=== PATIENT | male | born 1965 ===

== ENCOUNTER 2019-12-05 11:19 | Emergency (ER) | payer MEDICAID ==
[~2019-12-05] VITALS: Ht 172.7 cm; Wt 104.5 kg
[2019-12-05 11:36] VITALS: TEMP 98.1
[2019-12-05] MEDS ORDERED: LITHIUM 30300 MG/CAP PO (11:56)
[2019-12-05] MEDS ORDERED: NORVASC 10MG10 MG PO (11:57)
[2019-12-05] MEDS ORDERED: ASPIRIN 81M81 MG/TA2 PO (11:57)
[2019-12-05] MEDS ORDERED: MOBIC 7.5MG7.5 MG PO (11:57)
[2019-12-05] MEDS ORDERED: LIPITOR 10MG10 MG PO (11:57)
[2019-12-05] MEDS ORDERED: INDERAL 10MG10 MG PO (11:58)
[2019-12-05] MEDS ORDERED: INVEGA9 MG PO (11:58)
[2019-12-05] MEDS ORDERED: COLACE 100100 MG/CAP PO (11:59)
[2019-12-05] MEDS ORDERED: COZAAR 50MG50 MG/TAB PO (11:59)
[2019-12-05] MEDS ORDERED: THORAZINE 225 MG/TAB PO (12:00)
[2019-12-05] MEDS ORDERED: GLUCOTROL 5M5 MG/TAB PO (12:01)
[2019-12-05] MEDS ORDERED: PROSCAR 5MG5 MG PO (12:01)
[2019-12-05 12:05] LABS: COLLECTION METHOD CLEAN CATCH
[2019-12-05 12:17] LABS: BASO % 0.5 % (0.0-2.0); EOS % 0.7 % (0-4.0); GRAN # 2.4 (1.4-6.5); GRAN % 60.1 % (42.2-75.2); HEMATOCRIT 40.7 % (42.0-52.0); HEMOGLOBIN 13.9 g/dl (13.5-18.0); LYMPH # 1.2 (1.2-3.4); LYMPH % 30.5 % (20.0-51.0); MEAN CELL VOLUME 88 fl (80.0-100.0); MEAN CORPUSCULAR HEMOGLOBIN 30 pg (27.0-31.0); MEAN CORPUSCULAR HGB CONC 34 g/dl (33.0-37.0); MEAN PLATELET VOLUME 8.9 fl (7.4-10.4); MONO # 0.3 (0.1-0.6); MONO % 7.7 % (1.7-9.3); PLATELET COUNT 262 K/mm3 (130-400); RED BLOOD COUNT 4.65 M/mm3 (4.20-5.60); REDCELL DISTRIBUTION WIDTH-CV 12.3 % (11.5-14.5)
[2019-12-05 12:21] LABS: PH 6 (5-8); SQUAMOUS EPITHELIAL None Seen /hpf; URINE APPEARANCE Clear; URINE BACTERIA None Seen /hpf; URINE BILIRUBIN Negative (NEGATIVE); URINE BLOOD Negative (NEGATIVE); URINE COLOR Straw; URINE GLUCOSE 2+ (NEGATIVE); URINE KETONE Negative (NEGATIVE); URINE LEUKOCYTE ESTERASE Negative (NEGATIVE); URINE NITRATE Negative (NEGATIVE); URINE PROTEIN(semi-quant) Negative (NEGATIVE); URINE RBC None Seen /hpf; URINE UROBILINOGEN Negative (NEGATIVE)
[2019-12-05 12:22] LABS: ALANINE AMINOTRANSFERASE 130 U/L (21-72); ALBUMIN 4.5 gm/dL (3.5-5.0); ALKALINE PHOSPHATASE 91 U/L (50-136); ANION GAP 12 mmol/L (7-16); AST,SGOT 78 U/L (15-37); BILIRUBIN,TOTAL 0.5 mg/dL (0.0-1.0); BLOOD UREA NITROGEN 9 mg/dL (9-20); CALCIUM 9.7 mg/dL (8.4-10.2); CARBON DIOXIDE 25 mmol/L (22-30); CHLORIDE 98 mmol/L (98-107); CREATININE, serum 0.95 (0.66-1.25); GLUCOSE 213 mg/dL (74-106); POTASSIUM 3.5 mmol/L (3.4-5.0); SODIUM 135 mmol/L (137-145); TOTAL PROTEIN 7.3 gm/dL (6.4-8.2)
[2019-12-05 12:31] LABS: ACETAMINOPHEN < 10 ug/mL (10-30); ALCOHOL(ethanol),MEDICAL < 10 mg/dL; SALICYLATE < 1.0 mg/dL
[2019-12-05 12:41] LABS: TRICYCLIC ANTIDEPRESS URINE NEGATIVE
[2019-12-05 17:40] VITALS: BP 152/77; PULSE 120
== END 2019-12-05 17:45 ==
LOC: COL.ER 11:19
PROVIDERS: Nurse Practitioner
DX: F32.9 Major depressive disorder, single episode, unspecified (principal); F20.9 Schizophrenia, unspecified; R45.851 Suicidal ideations; F43.10 Post-traumatic stress disorder, unspecified; F41.9 Anxiety disorder, unspecified; Z79.82 Long term (current) use of aspirin; Z79.84 Long term (current) use of oral hypoglycemic drugs

== ENCOUNTER 2020-04-24 14:13 | Emergency (ER) | payer MEDICAID ==
[~2020-04-24] VITALS: Ht 175.3 cm; Wt 105.5 kg
[~2020-04-24 14:13] MED LIST: ASPIRIN 81M81 MG/TA2 PO; COLACE 100100 MG/CAP PO; COZAAR 50MG50 MG/TAB PO; GLUCOTROL 5M5 MG/TAB PO; INDERAL 10MG10 MG PO; INVEGA9 MG PO; LIPITOR 10MG10 MG PO; LITHIUM 30300 MG/CAP PO; MOBIC 7.5MG7.5 MG PO; NORVASC 10MG10 MG PO; PROSCAR 5MG5 MG PO; THORAZINE 225 MG/TAB PO
[2020-04-24 14:15] VITALS: TEMP 99.8
[2020-04-24] MEDS ORDERED: SINEQUAN 1100 MG/CAP PO (14:36)
[2020-04-24] MEDS ORDERED: NEXIUM 40MG40 MG PO (14:36)
[2020-04-24] MEDS ORDERED: FLOMAX 0.40.4 MG/CAP PO (14:38)
[2020-04-24] MEDS ORDERED: SELENIUM200 MC5 (14:39)
[2020-04-24] MEDS ORDERED: NATURAL E400 IU (14:40)
[2020-04-24] MEDS ORDERED: VITAMIN B COMPL1 SGL (14:40)
[2020-04-24] MEDS ORDERED: OMEGA-31 SGL (14:40)
[2020-04-24] MEDS ORDERED: ENULOSE10 GM/151 PO (14:41)
[2020-04-24] MEDS ORDERED: VITAMIN K0.1 MG (14:42)
[2020-04-24] MEDS ORDERED: D3-5050000 IU (14:43)
[2020-04-24] MEDS ORDERED: PHARMASSURE ZIN50 MG (14:43)
[2020-04-24] MEDS ORDERED: NATURAL VITAM1000 MG (14:44)
[2020-04-24 15:20] LABS: ALANINE AMINOTRANSFERASE 61 U/L (4-49); ALBUMIN 4.3 gm/dL (3.5-5.0); ALKALINE PHOSPHATASE 80 U/L (50-136); ANION GAP 11 mmol/L (7-16); AST,SGOT 62 U/L (15-37); BILIRUBIN,TOTAL 0.6 mg/dL (0.0-1.0); BLOOD UREA NITROGEN 8 mg/dL (9-20); C-REACTIVE PROTEIN 0.8 mg/dL (0.0-0.9); CALCIUM 9.3 mg/dL (8.4-10.2); CARBON DIOXIDE 23 mmol/L (22-30); CHLORIDE 95 mmol/L (98-107); CREATININE, serum 0.94 (0.66-1.25); GLUCOSE 151 mg/dL (74-106); SODIUM 129 mmol/L (137-145); TOTAL PROTEIN 7.3 gm/dL (6.4-8.2)
[2020-04-24 15:29] LABS: TROPONIN-I < 0.012 ng/mL (0.000-0.035)
[2020-04-24 15:30] LABS: COLLECTION METHOD CLEAN CATCH
[2020-04-24 15:35] LABS: BASO % 0.4 % (0.0-2.0); EOS # 0.1 (0.0-0.7); GRAN # 1.8 (1.4-6.5); GRAN % 39.4 % (42.2-75.2); HEMATOCRIT 38.4 % (42.0-52.0); HEMOGLOBIN 13.1 g/dl (13.5-18.0); LYMPH # 2.2 (1.2-3.4); LYMPH % 48.2 % (20.0-51.0); MEAN CELL VOLUME 84 fl (80.0-100.0); MEAN CORPUSCULAR HEMOGLOBIN 29 pg (27.0-31.0); MEAN CORPUSCULAR HGB CONC 34 g/dl (33.0-37.0); MEAN PLATELET VOLUME 8.7 fl (7.4-10.4); MONO # 0.4 (0.1-0.6); MONO % 9.3 % (1.7-9.3); PLATELET COUNT 267 K/mm3 (130-400); REDCELL DISTRIBUTION WIDTH-CV 12.3 % (11.5-14.5)
[2020-04-24 15:36] LABS: PH 6 (5-8); SQUAMOUS EPITHELIAL None Seen /hpf; URINE APPEARANCE Clear; URINE BACTERIA None Seen /hpf; URINE BILIRUBIN Negative (NEGATIVE); URINE BLOOD Negative (NEGATIVE); URINE COLOR Colorless; URINE GLUCOSE Negative (NEGATIVE); URINE KETONE Negative (NEGATIVE); URINE LEUKOCYTE ESTERASE Negative (NEGATIVE); URINE NITRATE Negative (NEGATIVE); URINE PROTEIN(semi-quant) Negative (NEGATIVE); URINE RBC 0-2 /hpf; URINE UROBILINOGEN Negative (NEGATIVE)
[2020-04-24 17:15] VITALS: BP 152/96
[2020-04-24] MEDS ORDERED: TOPROL XL 50MG50 MG PO (17:46)
[2020-04-24] MEDS ORDERED: K-DUR20 MEQ PO (17:49)
[2020-04-24 18:00] VITALS: PULSE 112
== END 2020-04-24 18:10 | disposition home or self-care (01) ==
LOC: COL.ER 14:13
PROVIDERS: Emergency Medicine
DX: T44.7X6A Underdosing of beta-adrenoreceptor antagonists, initial encounter (principal); T44.7X5A Adverse effect of beta-adrenoreceptor antagonists, initial encounter; R33.9 Retention of urine, unspecified; E87.6 Hypokalemia; I10 Essential (primary) hypertension; E78.00 Pure hypercholesterolemia, unspecified; E11.9 Type 2 diabetes mellitus without complications; Z79.84 Long term (current) use of oral hypoglycemic drugs
CPT/HCPCS: J7030

== ENCOUNTER 2020-07-08 16:45 | Emergency (ER) | payer MEDICAID ==
[~2020-07-08] VITALS: Ht 175.3 cm; Wt 111.4 kg
[~2020-07-08 16:45] MED LIST changes: +D3-5050000 IU; +ENULOSE10 GM/151 PO; +FLOMAX 0.40.4 MG/CAP PO; +K-DUR20 MEQ PO; +NATURAL E400 IU; +NATURAL VITAM1000 MG; +NEXIUM 40MG40 MG PO; +OMEGA-31 SGL; +PHARMASSURE ZIN50 MG; +SELENIUM200 MC5; +SINEQUAN 1100 MG/CAP PO; +TOPROL XL 50MG50 MG PO; +VITAMIN B COMPL1 SGL; +VITAMIN K0.1 MG
[2020-07-08 16:46] VITALS: TEMP 97.4
[2020-07-08 17:06] LABS: COLLECTION METHOD CLEAN CATCH
[2020-07-08 17:12] LABS: PH 6 (5-8); SQUAMOUS EPITHELIAL None Seen /hpf; URINE APPEARANCE Clear; URINE BACTERIA None Seen /hpf; URINE BILIRUBIN Negative (NEGATIVE); URINE BLOOD Negative (NEGATIVE); URINE COLOR Colorless; URINE GLUCOSE 1+ (NEGATIVE); URINE KETONE Negative (NEGATIVE); URINE LEUKOCYTE ESTERASE Negative (NEGATIVE); URINE NITRATE Negative (NEGATIVE); URINE PROTEIN(semi-quant) Negative (NEGATIVE); URINE RBC None Seen /hpf; URINE UROBILINOGEN Negative (NEGATIVE)
[2020-07-08 17:17] LABS: BASO % 0.3 % (0.0-2.0); EOS # 0.1 (0.0-0.7); EOS % 1.7 % (0-4.0); GRAN # 2.9 (1.4-6.5); GRAN % 49.6 % (42.2-75.2); HEMATOCRIT 37.5 % (42.0-52.0); HEMOGLOBIN 12.6 g/dl (13.5-18.0); LYMPH # 2.4 (1.2-3.4); LYMPH % 40.9 % (20.0-51.0); MEAN CELL VOLUME 88 fl (80.0-100.0); MEAN CORPUSCULAR HEMOGLOBIN 29 pg (27.0-31.0); MEAN CORPUSCULAR HGB CONC 34 g/dl (33.0-37.0); MEAN PLATELET VOLUME 8.5 fl (7.4-10.4); MONO # 0.4 (0.1-0.6); PLATELET COUNT 269 K/mm3 (130-400); RED BLOOD COUNT 4.28 M/mm3 (4.20-5.60); REDCELL DISTRIBUTION WIDTH-CV 13.5 % (11.5-14.5)
[2020-07-08 17:31] LABS: ALANINE AMINOTRANSFERASE 58 U/L (4-49); ALBUMIN 4.5 gm/dL (3.5-5.0); ALKALINE PHOSPHATASE 76 U/L (50-136); ANION GAP 11 mmol/L (7-16); AST,SGOT 44 U/L (15-37); BILIRUBIN,TOTAL 0.5 mg/dL (0.0-1.0); BLOOD UREA NITROGEN 14 mg/dL (9-20); CALCIUM 9.8 mg/dL (8.4-10.2); CARBON DIOXIDE 25 mmol/L (22-30); CHLORIDE 97 mmol/L (98-107); GLUCOSE 193 mg/dL (74-106); LIPASE 77 U/L (23-300); POTASSIUM 3.5 mmol/L (3.4-5.0); SODIUM 133 mmol/L (137-145); TOTAL PROTEIN 7.2 gm/dL (6.4-8.2)
[2020-07-08 17:32] LABS: C-REACTIVE PROTEIN < 0.5 mg/dL (0.0-0.9)
[2020-07-08 17:53] LABS: TROPONIN-I < 0.012 ng/mL (0.000-0.035)
[2020-07-08 18:54] VITALS: BP 125/96; PULSE 112
== END 2020-07-08 19:00 | disposition home or self-care (01) ==
LOC: COL.ER 16:45
PROVIDERS: Emergency Medicine
DX: R14.0 Abdominal distension (gaseous) (principal); R51.9 Headache, unspecified; N40.0 Benign prostatic hyperplasia without lower urinary tract symptoms; Z79.84 Long term (current) use of oral hypoglycemic drugs
CPT/HCPCS: J2405; J7040